=== PATIENT | female | born 1965 | race Caucasian/White ===

== ENCOUNTER 2017-06-04 08:38 | Emergency (ER) | payer MEDICAID, OTHER ==
[2017-06-04] MEDS: SOD CHLORIDE 0.9% 1,000 ML IV (08:57)
[2017-06-04] MEDS: ONDANSETRON 4 MG INJ IV (08:57)
[2017-06-04 09:08] LABS: ADD MAN DIFF? NO
[2017-06-04 09:14] LABS: WHITE BLOOD COUNT 8.2 10^3/ul (4.8-10.8)
[2017-06-04 09:14] LABS: BASOPHILS % 0.2 % (0.0-2.0); EOSINOPHILS % 0.2 % (0.0-7.0); HEMOGLOBIN 14.4 g/dl (12.0-16.0); LYMPHOCYTES % 12.7 % (15.0-51.0); MEAN CORPUSCULAR HEMOGLOBIN 30.3 pg (29.0-33.0); MEAN CORPUSCULAR HGB CONC 35.1 g/dl (32.0-37.0); MEAN CORPUSCULAR VOLUME 86.1 fl (82.0-101.0); MONOCYTE # 0.7 10^3/ul (0.3-0.9); MONOCYTES % 8.1 % (0.0-11.0); NEUTROPHIL # 6.4 10^3/ul (1.6-7.5); NEUTROPHILS % 78.6 % (39.0-77.0); PLATELET COUNT 299 10^3/UL (140-415); RED BLOOD COUNT 4.76 10^6/ul (4.20-5.40); RED CELL DISTRIBUTION WIDTH 11.9 % (11.5-14.5)
[2017-06-04 09:34] LABS: ALANINE AMINOTRANSFERASE 21 IU/L (13-69); ALBUMIN/GLOBULIN RATIO 1.56; ALKALINE PHOSPHATASE 65 IU/L (42-121); ANION GAP 19 (8-16); ASPARTATE AMINO TRANSFERASE 20 IU/L (15-46); BILIRUBIN,INDIRECT 0.8 mg/dl (0-1.1); BILIRUBIN,TOTAL 0.8 mg/dl (0.2-1.3); BLOOD UREA NITROGEN 8 mg/dl (7-20); CALCIUM 9.8 mg/dl (8.4-10.2); CARBON DIOXIDE 26 mmol/L (21-31); CHLORIDE 99 mmol/L (97-110); CREATININE 0.66 mg/dl (0.44-1.00); GLUCOSE 118 mg/dl (70-220); LIPASE 51 U/L (23-300); POTASSIUM 3.7 mmol/L (3.5-5.1); SODIUM 140 mmol/L (135-144); TOTAL PROTEIN 8.2 g/dl (6.1-8.1)
== END 2017-06-04 11:05 | disposition home or self-care (01) ==
LOC: E/R 08:38
DX: I10 Essential (primary) hypertension (principal)
CPT/HCPCS: 36415; 80053; 81025; 83690; 85025; 96374; 99284-25